=== PATIENT | female | born 1975 | race Caucasian/White ===

== ENCOUNTER 2018-01-19 12:38 | Emergency (ER) | payer SELFPAY ==
[~2018-01-19] VITALS: Ht 162.6 cm; Wt 116.2 kg
[~2018-01-19 12:38] MED LIST: ALTOPREV20 MG OR; CIPRO XR500 MG PO; CIPRO500 MG OR; DYAZIDE1 CAP OR; ECOTRIN325 MG OR; FLEXERIL OR; FLOVENT HFA220 MCG PO; MEDDOSEPAK PO; MOTRIN600 MG/TAB PO; MULTI OR; NAPROSYN500 MG OR; OMEPRAZOLE40 MG PO; TENORMIN25 MG OR; VENTOLIN HFA IN; WELLBUTRIN100 M2 OR; [UNRECOGNIZED DRUG - OTHER] OR
[2018-01-19] MEDS ORDERED: ZPAK PO (14:40)
[2018-01-19] MEDS ORDERED: PROAIR HFA108 MCG/AC PO (14:40)
[2018-01-19] MEDS ORDERED: PREDNISONE50 MG PO (14:40)
[2018-01-19 14:43] VITALS: BP 136/78
[2018-01-19 14:53] LABS: INFLUENZA A NONE DETECTED (NONE DETECT); INFLUENZA B NONE DETECTED (NONE DETECT)
== END 2018-01-19 14:50 | disposition home or self-care (01) | DRG 203 ==
LOC: ED 12:38
PROVIDERS: Family Medicine
DX: J40 Bronchitis, not specified as acute or chronic (principal); F17.210 Nicotine dependence, cigarettes, uncomplicated; R09.81 Nasal congestion; R05 Cough; R50.9 Fever, unspecified; J02.9 Acute pharyngitis, unspecified

== ENCOUNTER 2020-01-25 | Emergency (ER) | payer SELFPAY ==
[~2020-01-25] MED LIST changes: +PREDNISONE50 MG PO; +PROAIR HFA108 MCG/AC PO; +ZPAK PO
[2020-01-25] MEDS ORDERED: TAM75CAP PO (21:06)
== END 2020-01-25 22:00 | disposition home or self-care (01) | DRG 153 ==
DX: J11.1 Influenza due to unidentified influenza virus with other respiratory manifestations (principal); F17.210 Nicotine dependence, cigarettes, uncomplicated

== ENCOUNTER 2020-07-20 17:11 | Emergency (ER) | payer SELFPAY ==
[~2020-07-20] VITALS: Ht 162.6 cm; Wt 113.0 kg
[~2020-07-20 17:11] MED LIST changes: +TAM75CAP PO
[2020-07-20] MEDS ORDERED: CLINDAMYCIN300 M1 PO (17:39)
[2020-07-20] MEDS ORDERED: HYDROCO/APAP1 TA9 PO ×2 (17:39→17:59)
[2020-07-20] MEDS ORDERED: IBUPROFEN600 MG PO (17:39)
[2020-07-20 17:49] VITALS: BP 124/81
== END 2020-07-20 17:49 | disposition home or self-care (01) | DRG 159 ==
LOC: ED 17:11
DX: K04.7 Periapical abscess without sinus (principal); K03.81 Cracked tooth; F17.200 Nicotine dependence, unspecified, uncomplicated